=== PATIENT | female | born 1975 | race Caucasian/White ===

== ENCOUNTER 2018-06-27 04:00 | Inpatient (IN) ==
[2018-06-27] MEDS ORDERED: Famotidine 20 MG/2 ML VIAL IVP PRN (05:31)
[2018-06-27] MEDS ORDERED: *HR* Nalbuphine 10 MG/ML AMPUL IVP PRN (05:31)
[2018-06-27] MEDS ORDERED: Naloxone 0.4 MG/ML INJ IVP PRN (05:31)
[2018-06-27] MEDS ORDERED: Penicillin G Potassium 5,000,000 UNIT in 0.9 % Sodium Chloride Mini Bag 100 ML IVPB ONE (05:43)
[2018-06-27] MEDS ORDERED: Ringers Solution, Lactated 1,000 ML IVC SCH (05:45)
[2018-06-27 06:13] LABS: Basophils % 0.2 %; Eosinophils # 0.1 K/mcL (0.0-0.6); Eosinophils % 1.4 %; Hematocrit 27.5 % (35.3-44.9); Hemoglobin 9.5 g/dL (11.5-15.4); Immature Granulocytes % 1.6 % (0-4); Lymphocytes # 2.1 K/mcL (0.6-4.6); Lymphocytes % 21.3 %; Mean Corpuscular HGB Conc 34.5 g/dL (31.6-35.5); Mean Corpuscular Hemoglobin 32.2 pg (28.0-33.3); Mean Corpuscular Volume 93.2 fL (83.0-100.0); Mean Platelet Volume 10.7 fL (9.4-12.4); Monocytes # 0.5 K/mcL (0.0-1.3); Platelet Count 220 K/mcL (140-400); Red Blood Count 2.95 M/mcL (3.82-4.97); Red Cell Distribution Width 14.1 % (11.5-14.5); Segmented Neutrophils % 70.5 %
[2018-06-27 06:32] LABS: Alanine Aminotransferase 8 Units/L (7-52); Aspartate Amino Transferase 18 Units/L (13-39); BUN/Creatinine Ratio 14 (6-26); Blood Urea Nitrogen 9 mg/dL (6-20); Lactate Dehydrogenase 189 Units/L (140-271); Uric Acid 7.3 mg/dL (2.3-7.6); eGFR For Non-African Americans > 60 (> 60)
[2018-06-27 06:42] LABS: Amphetamine Screen,Urine Negative ng/mL (Cutoff=1000); Barbiturate Screen,Urine Negative ng/mL (Cutoff=200)
[2018-06-27 06:43] LABS: Benzodiazepines Screen,Urine Negative ng/mL (Cutoff=300); Cannabinoid Screen,Urine Negative ng/mL (Cutoff = 50); Cocaine Screen,Urine Negative ng/mL (Cutoff= 300); Opiate Screen,Urine Negative ng/mL (Cutoff=300); Phencyclidine Screen,Urine Negative ng/mL (Cutoff=25)
[2018-06-27] MEDS ORDERED: miSOPROStol 25 MCG TABLET VG SCH (08:00)
[2018-06-27] MEDS ORDERED: Ringers Solution, Lactated 500 ML IVC ONE (08:26)
[2018-06-27] MEDS ORDERED: EPHEDrine 50 MG/ML VIAL IVP PRN (08:26)
--- NOTE | 2018-06-27 08:27 | OB/GYN History & Physical ---
Date of Encounter: 06/28/18 Time of Encounter: 08:27 Assessment and Plan (1) 38 weeks gestation of Current visit: No Status: Acute 42 y/o @ 38+ 3 weeks, CHTN vs CHTN with superimposed preeclampsia Obesity, Multigravida, Migraines Plan: she received cytotec 25mcg @ 6:30AM and PCN for GBS ppx @ 0616, she has received 200mg of PO Labetalol because she did not take her AM dose, I don't think she has superimposed pre-eclampsia at this time but if I have to keep giving anti hypertensives and her pressures are difficult to control, then we have to assume CHTN with superimposed pre-eclampsia (I just gave 20mg of IV labetalol x 1 so far, aside from anemia, her labs are normal, she has had occasional spontaneous decels so we are carefully monitoring her strip, anticipate History of Present Illness HPI: Ms. Foreman is a 42 year old female @ 38+3 weeks who presents to L&D for IOL for CHTN controlled with meds. She does not report LOF, VB or ctxs. She presents to L&D with severe range pressures and reports that she did not take her meds. She is GBS + and was late to care. She has a history of migraines, but does not report other symptoms of toxemia. Past Med Surg Social Fam HX - Past Medical History Medical history: hypertension, migraine Psychiatric history: no psych history - Past Surgical History Additional surgical history: OVARIAN CYST REMOVED 1994. vaginal delivery 95 , 03, 05 , 12 - Social History Smoking Status: Never smoker Smokeless Tobacco Status: No Alcohol use: none Drug use: none - Family History Mother Living Status: Still Living Hx Family Cardiac Disorders: Yes (HTN) Hx Family Respiratory Disorders: No Hx Family Cancer: No Hx Family GI Disorders: No Hx Family Genitourinary Disorders: No Hx Family Endocrine Disorder: Yes (DM) Hx Family Musculoskeletal Disorders: No Hx Family Neuromuscular Disorders: No Hx Family Neurologic Disorders: No Hx Family HEENT Disorders: No Hx Family Autoimmune Disorders: No Hx Family Reproductive Disorders: No Hx Family Psychosocial Disorders: No Hx Family Medical Disorders: No Obstetrical History - Pregnancies : 6 Medications and Allergies Formula 1 tab PO DAILY 10/02/15 [History] Labetalol [Trandate] 100 mg PO BID 06/27/18 [History] 3 Allergy/AdvReac Type Severity Reaction Status Date / Time No Known Allergies Allergy Verified 10/01/15 21:42 Results Result Diagrams: 06/28/18 05:44 06/27/18 05:40 Abnormal lab results RBC 2.95 M/mcL (3.82-4.97) L 06/27/18 05:40 Hgb 9.5 g/dL (11.5-15.4) L 06/27/18 05:40 Hct 27.5 % (35.3-44.9) L 06/27/18 05:40 All other labs normal. - VTE Reasons for not Prescribing Prophylaxis: Treatment not Indicated - Low risk for VTE
--- NOTE | 2018-06-27 08:28 | Anesthesia Evaluation PreOp ---
Date of Encounter: 06/27/18 Time of Encounter: 08:26 - Past History Planned Operation: GUILHERME/General for CS/Spinal for CS Cardiac History: HTN (Chronic HTN with ) Pulmonary History: Denies Any Significant HX ONLINE SERVICES MANAGER History: Denies Any Significant HX Other Medical History: Denies Any Significant HX Anesthesia History: No Prior Anesthetic Complications, Past Anesthesia : Yes Alcohol Use: none Drug use: none Medications and Allergies Formula 1 tab PO DAILY 10/02/15 [History] Labetalol [Trandate] 100 mg PO BID 06/27/18 [History] 3 Allergy/AdvReac Type Severity Reaction Status Date / Time No Known Allergies Allergy Verified 10/01/15 21:42 - Meds/Allergy Pre-op Review Medications Reviewed: Yes Allergies Reviewed: Yes Beta Blockers on Current Med List: Yes (today at 820) Anesthesia Results - Labs 06/27/18 05:40 06/27/18 05:40 Anesthesia Exam O2 Sat Height 1.6 m Height 1.6 m Weight 104.508 kg Weight 104.326 kg O2 Sat Height 1.6 m Height 1.6 m Weight 104.508 kg Weight 104.326 kg NPO (# of Hours): 4 Pain Scale: 3 Pain Scale Used: Numeric (1 - 10) - HEENT Pupil (Motor): Pupils equal Mallampati: II Teeth: Normal Oral Opening: Greater than 3 - ONLINE SERVICES MANAGER LOC: Oriented ONLINE SERVICES MANAGER Motor: Normal RUE, Normal LUE, Normal RLE, Normal LLE, Normal Face ONLINE SERVICES MANAGER Sensory: Normal: RUE, LUE, RLE, LLE, Face - Cardiac Rhythm: Regular Murmur: None JVD: No Carotid Bruit: No - Pulmonary Breath Sounds: bilateral Clear Respiratory Effort: Symmetrical Anesthesia Assess/Plan ASA Score: 3 (BMI 40, HTN) Modified [place] Scale for Level of Consciousness: Cooperative, oriented, and tranquil Anesthetic Plan: General (plan b), Regional (plan a) Autologous Blood: Yes Monitoring Plan: Standard Monitors Recovery Plan: PACU
[2018-06-27] MEDS ORDERED: Epidural Premix (fent/bupiv) 110 ML EP SCH (08:30)
[2018-06-27] MEDS ORDERED: *HR* Labetalol 20 MG/4 ML SYRINGE IVP ONE ×5 (08:31→13:08)
[2018-06-27] MEDS: Penicillin G Potassium 2,500,000 UNIT in 0.9 % Sodium Chloride 100 ML IVPB SCH ×2 (10:22→15:36)
[2018-06-27] MEDS ORDERED: Magnesium Sulfate 6 GM in 0.9 % Sodium Chloride 100 ML IVPB ONE (10:47)
[2018-06-27] MEDS: Magnesium Sulfate 20 gm/500mL 20 GM/500 ML IV.SOLN IVC SCH ×2 (11:38→22:43)
--- NOTE | 2018-06-27 12:24 | OB Labor Progress Note ---
Date of Encounter: 06/28/18 Time of Encounter: 12:19 Labor Progress Note - Subjective Subjective: her pressures are in the 160's systolic, does not report blurry vision, KIRKLAND, RUQ pain or other symptoms of superimposed preeclampsia - Vital Signs Vital Signs: mild to severe range pressures - Cervix Cervix: 3cm - Heart Tones Heart Tones: CAT 1 - Plan Plan: IV labetalol 40mg given will start her on Mg for seizure ppx, start pitcoin s/p 4hr of GBS ppx
[2018-06-27] MEDS ORDERED: Lidocaine -MPF 1% 5 ML AMPUL ONE (12:34)
--- NOTE | 2018-06-27 13:09 | Anesthesia Procedures ---
Date of Encounter: 06/27/18 Time of Encounter: 13:07 Procedures: Anesthesia - Epidural/Spinal Patient ID/Chart reviewed: Yes Patient examined: Yes OB Eval: Gestational age: 38.3 OB Eval: : 6 OB Eval: Hx Para: 5 OB Eval: Dilated at (cm): 3 OB Eval: Contractions: Non-stressed pattern Consent Obtained: Yes Supplemental Oxygen: None/Room Air Site Prep: Aseptic Technique, Sterile prep and drape, Povidone-Iodine 1% Patient position: upright Local Anesthetic: Lidocaine 1% Amount of Local Anesthetic used: 3 Touhy Needle Gauge: 18 Touhy Needle Depth (cm): 7 Catheter Depth at Skin (cm): 20 Test Dose (1.5% Lido + Epi): Volume given (mls): 5 Test Dose Result: Negative Loading Dose: Other: 10mls of epidural pharm bag premix Loading Dose Administered: Thru Catheter Infusion Med: 0.125% Bupivacaine w/ 2 mcg/ml Fentanyl Infusion Rate (mls/hr): 14 ([id number]) Catheter Secured in Place: Tegaderm, Tape Interspace Used: L3-L4 Loss of Resistance (RUPA): Yes Blood: No CSF: No Paresthesia: No Procedure: pt tolerated procedure well. no complications. vss. fhr stable.
[2018-06-27] MEDS ORDERED: Oxytocin 20 units/ LR 1000 mL 20 UNIT/1,000 ML BAG IVC SCH ×2 (13:30→19:00)
--- NOTE | 2018-06-27 16:05 | OB Labor Progress Note ---
Date of Encounter: 06/28/18 Time of Encounter: 16:00 Labor Progress Note - Subjective Subjective: patient comfortable s/p epidural, on Mg for for seizures ppx, has a mild KIRKLAND but denies other symptoms of toxemia - Vital Signs Vital Signs: mild to normal range pressures - Cervix Cervix: 5-6cm - Heart Tones Heart Tones: CAT 1 - Plan Plan: patient AROM'ed cont monitoring BP, cont monitoring strip anticipate
[2018-06-27] MEDS ORDERED: Ondansetron 4 MG/2 ML VIAL IVP PRN (17:25)
[2018-06-27] MEDS ORDERED: Ondansetron 4 MG/2 ML VIAL ONE (17:28)
--- NOTE | 2018-06-27 18:50 | OB/GYN Procedure Note ---
Delivery - Delivery Date: 06/27/18 Provider: Jos Garcia Intrapartum events: none Delivery induction: oxytocin, misoprostol Delivery augmentation: rupture of membranes Delivery monitor: external FHT Anesthesia: epidural Quantitated Blood Loss: 100 - Repair Episiotomy: none Laceration Description: Periurethral - Complications Delivery complications: none - Disposition Mom disposition: stable in LDR [place] disposition: stable in LDR - Comments Comments: Deepa is a 42 y/o now who delivered a viable male infant @ 1814hrs, was delivered CRISTY, weight 2820g (6lbs 13oz), APGARs 8/9, placenta delivered @ 1817, right hemostatic periurethral laceration, EBL 100cc. Mother and infant stable.
[2018-06-27] MEDS ORDERED: Ibuprofen 600 MG TABLET PO PRN (18:53)
[2018-06-27] MEDS ORDERED: Measles/Mumps/Rubella Vacc 0.5 ML VIAL SQ PRN (18:53)
[2018-06-27] MEDS: Acetaminophen/Butalbital/CaffeineTABLET PO PRN (19:09)
[2018-06-27] MEDS ORDERED: Calcium Gluconate 1,000 MG/10 ML VIAL IVPB ONE (21:29)
[2018-06-28] MEDS: Acetaminophen/Butalbital/CaffeineTABLET PO PRN ×2 (01:30→08:53)
[2018-06-28 05:57] LABS: Basophils % 0.3 %; Eosinophils # 0.1 K/mcL (0.0-0.6); Eosinophils % 0.9 %; Hematocrit 32.2 % (35.3-44.9); Immature Granulocytes % 1.2 % (0-4); Lymphocytes # 1.6 K/mcL (0.6-4.6); Lymphocytes % 13.3 %; Mean Corpuscular HGB Conc 34.5 g/dL (31.6-35.5); Mean Corpuscular Hemoglobin 31.8 pg (28.0-33.3); Mean Corpuscular Volume 92.3 fL (83.0-100.0); Mean Platelet Volume 10.5 fL (9.4-12.4); Monocytes # 0.6 K/mcL (0.0-1.3); Monocytes % 4.5 %; Neutrophils # 9.7 K/mcL (1.6-8.9); Platelet Count 237 K/mcL (140-400); Red Blood Count 3.49 M/mcL (3.82-4.97); Red Cell Distribution Width 14.1 % (11.5-14.5); Segmented Neutrophils % 79.8 %
[2018-06-28 05:59] LABS: Hemoglobin 11.1 g/dL (11.5-15.4)
[2018-06-28] MEDS: Magnesium Sulfate 20 gm/500mL 20 GM/500 ML IV.SOLN IVC SCH (08:06)
[2018-06-28] MEDS: Prenatal Vit/FA 1 EACH TABLET PO SCH (08:08)
[2018-06-28 09:16] LABS: Alanine Aminotransferase 7 Units/L (7-52); Albumin 2.8 g/dL (3.5-5.7); Alkaline Phosphatase 70 Units/L (34-104); Aspartate Amino Transferase 15 Units/L (13-39); Aspartate Amino Transferase 16 Units/L (13-39); BUN/Creatinine Ratio 9 (6-26); Bilirubin,Total 0.4 mg/dL (0.3-1.0); Blood Urea Nitrogen 6 mg/dL (6-20); Carbon Dioxide 21 mEq/L (23-29); Chloride 101 mEq/L (98-107); Globulin 2.9 g/dL (2.4-3.5); Glucose 102 mg/dL (70-105); Lactate Dehydrogenase 199 Units/L (140-271); Osmolality,Calculated 268 (280-300); Potassium 3.8 mEq/L (3.5-5.1); Sodium 130 mEq/L (136-145); Total Protein 5.7 g/dL (6.4-8.9); Uric Acid 6.7 mg/dL (2.3-7.6); eGFR For Non-African Americans > 60 (> 60)
[2018-06-28 09:51] LABS: Magnesium 5.9 mg/dL (1.6-2.6)
--- NOTE | 2018-06-28 09:54 | OB/GYN Progress Note ---
Date of Encounter: 06/28/18 Time of Encounter: 09:48 - Assessment and Plan (1) Pre-eclampsia superimposed on chronic hypertension, delivered Current Visit: Yes Status: Acute Continue magnesium for 24 hours . (2) Hypotensive episode Current Visit: Yes Status: Acute BP 74/52 following administration of 200mg labetalol. Improved to 104/70 with supine positioning. 500ml bolus LR now. Pt to be out of bed only once feeling better and with RN assist. Will get orthostatic BP's prior to ambulation also. Plan to decrease labetalol to 100mg BID. Dr. Camacho aware (3) Status post vaginal delivery Current Visit: No Status: Acute Pt meeting milestones. Plan for d/c pang once pt is stable to ambulate. Anticipate discharge home PPD2 depending on BP control. Subjective - Subjective Interval history: CNM called to bedside per RN. Pt reporting numbness of her tongue and lips. She states that she felt like this when she took 200mg labetalol at home so she was only taking 100mg. Per RN she initially reported arm numbness and chest heaviness but these have improved with supine positioning prior to my arrival. She reports light lochia. Patient reports: appetite normal, voiding normally (via catheter, great output) , pain well controlled (pt reports KIRKLAND but recently took fioricet ), no ambulating normally (was dizzy last evening and has not been OOB this am) Peever: doing well Objective - Latest Vital Signs Latest vital signs: Vital Signs Temp Pulse Pulse Resp BP Pulse Ox 06/28/18 08:45 76 14 120/80 06/28/18 07:45 97.9 F 74 14 127/84 06/28/18 06:50 68 16 135/88 06/28/18 05:45 70 20 119/77 06/28/18 04:45 70 20 128/79 06/28/18 03:40 76 76 16 118/78 06/28/18 02:40 79 16 144/81 06/28/18 01:40 76 16 120/78 06/28/18 00:45 82 12 130/81 06/27/18 23:45 74 20 150/89 06/27/18 22:45 98.0 F 79 79 14 148/87 98 06/27/18 21:45 98.4 F 72 72 22 152/95 97 06/27/18 20:55 62 16 136/90 Intake and Output 06/27/18 06/28/18 06/28/18 23:59 07:59 15:59 Intake Total 500 / 500 500 / 500 Output Total 3290 / 3290 1340 / 1340 118 / 118 Balance -2790 / -2790 -1340 / -1340 382 / 382 Intake: IV Fluids 500 / 500 500 / 500 Magnesium Sulfate Premix 20 gm/ 500 / 500 500 / 500 500mL 20 gm In 500 ml @ 2 GM/HR 50 mls/hr IVC .Q10H MISSAEL Rx#: [id number] Output: Urine 2150 / 2150 1340 / 1340 118 / 118 Emesis 200 / 200 Catheter 940 / 940 Other: Weight 101.6 kg Patient Weight 06/28/18 23:59 Weight 101.6 kg - Exam Lungs: bilateral: normal Chest: Normal S1, Normal S2 Extremities: Present: normal (2+ reflexes bilaterally) Abdomen: Present: soft Uterus: Present: firm Uterus Position: 1 Finger Below Umbilicus Comments: lochia light - Labs Labs: Laboratory Results - last 24 hr 06/28/18 06/28/18 06/28/18 05:44 08:23 08:23 WBC 12.1 H RBC 3.49 L Hgb 11.1 L D Hct 32.2 L MCV 92.3 MCH 31.8 MCHC 34.5 RDW 14.1 Plt Count 237 MPV 10.5 Immature Gran % 1.2 Seg Neutrophils % 79.8 Lymphocytes % 13.3 Monocytes % 4.5 Eosinophils % 0.9 Basophils % 0.3 Neutrophils # 9.7 H Lymphocytes # 1.6 Monocytes # 0.6 Eosinophils # 0.1 Basophils # 0.0 Sodium 130 L Potassium 3.8 Chloride 101 Carbon Dioxide 21 L BUN 6 6 Creatinine 0.67 0.69 Est GFR ( Amer) > 60 > 60 Est GFR (Non-Af Amer) > 60 > 60 BUN/Creatinine Ratio 9 9 Glucose 102 Calculated Osmolality 268 L Uric Acid 6.7 Calcium 7.0 L Total Bilirubin 0.4 AST 16 15 ALT 7 7 Alkaline Phosphatase 70 Lactate Dehydrogenase 199 Serum Total Protein 5.7 L Albumin 2.8 L Globulin 2.9 Albumin/Globulin Ratio 1.0 L
[2018-06-29] MEDS: Prenatal Vit/FA 1 EACH TABLET PO SCH (08:18)
[2018-06-29 09:03] VITALS: BP 137/89
--- NOTE | 2018-06-29 10:13 | Discharge Summary ---
Date of Encounter: 06/29/18 Time of Encounter: 10:11 - Discharge Diagnosis (1) Status post vaginal delivery Priority: Primary Status: Acute Comments: Pain well controlled with by mouth pain meds Tolerating regular diet Voiding independently Lochia light Passing flatus, no BM yet Ambulating independently Vital signs stable and blood pressure controlled on 100 mg of labetalol twice a day Discharge home today (2) Breast feeding status of mother Priority: Secondary Status: Acute Comments: Community resources provided (3) hypertension Priority: Secondary Status: Acute Comments: Continue labetalol 100 mg twice a day through visit - Discharge Medications Prescriptions: Ibuprofen [Motrin] 600 mg PO Q6HR PRN #30 tablet PRN Reason: Cramping Docusate [Colace] 100 mg PO BID #30 capsule Home Medications: Formula 1 tab PO DAILY 10/02/15 [History] Labetalol [Trandate] 100 mg PO BID 06/27/18 [History] Docusate [Colace] 100 mg PO BID #30 capsule 06/29/18 [Rx] Ibuprofen [Motrin] 600 mg PO Q6HR PRN #30 tablet 06/29/18 [Rx] Allergies/Adverse Reactions: 3 Allergy/AdvReac Type Severity Reaction Status Date / Time No Known Allergies Allergy Verified 10/01/15 21:42 Data Procedures and tests throughout hospitalization: Laboratory Tests 06/27/18 06/27/18 06/27/18 05:40 05:40 05:40 WBC 10.0 RBC 2.95 L Hgb 9.5 L Hct 27.5 L MCV 93.2 MCH 32.2 MCHC 34.5 RDW 14.1 Plt Count 220 MPV 10.7 Immature Gran % 1.6 Seg Neutrophils % 70.5 Lymphocytes % 21.3 Monocytes % 5.0 Eosinophils % 1.4 Basophils % 0.2 Neutrophils # 7.0 Lymphocytes # 2.1 Monocytes # 0.5 Eosinophils # 0.1 Basophils # 0.0 Sodium Potassium Chloride Carbon Dioxide BUN Creatinine Est GFR ( Amer) Est GFR (Non-Af Amer) BUN/Creatinine Ratio Glucose Calculated Osmolality Uric Acid Calcium Magnesium Total Bilirubin AST ALT Alkaline Phosphatase Lactate Dehydrogenase Serum Total Protein Albumin Globulin Albumin/Globulin Ratio Urine Opiates Screen Negative Ur Barbiturates Screen Negative Ur Phencyclidine Scrn Negative Ur Amphetamines Screen Negative U Benzodiazepines Scrn Negative Urine Cocaine Screen Negative U Marijuana (THC) Screen Negative Ur Drug Screen Interp See Below Hep Bs Antigen Nonreactive 06/27/18 06/28/18 06/28/18 05:40 05:44 08:23 WBC 12.1 H RBC 3.49 L Hgb 11.1 L D Hct 32.2 L MCV 92.3 MCH 31.8 MCHC 34.5 RDW 14.1 Plt Count 237 MPV 10.5 Immature Gran % 1.2 Seg Neutrophils % 79.8 Lymphocytes % 13.3 Monocytes % 4.5 Eosinophils % 0.9 Basophils % 0.3 Neutrophils # 9.7 H Lymphocytes # 1.6 Monocytes # 0.6 Eosinophils # 0.1 Basophils # 0.0 Sodium 130 L Potassium 3.8 Chloride 101 Carbon Dioxide 21 L BUN 9 6 Creatinine 0.63 0.67 Est GFR ( Amer) > 60 > 60 Est GFR (Non-Af Amer) > 60 > 60 BUN/Creatinine Ratio 14 9 Glucose 102 Calculated Osmolality 268 L Uric Acid 7.3 Calcium 7.0 L Magnesium Total Bilirubin 0.4 AST 18 16 ALT 8 7 Alkaline Phosphatase 70 Lactate Dehydrogenase 189 Serum Total Protein 5.7 L Albumin 2.8 L Globulin 2.9 Albumin/Globulin Ratio 1.0 L Urine Opiates Screen Ur Barbiturates Screen Ur Phencyclidine Scrn Ur Amphetamines Screen U Benzodiazepines Scrn Urine Cocaine Screen U Marijuana (THC) Screen Ur Drug Screen Interp Hep Bs Antigen 06/28/18 08:23 WBC RBC Hgb Hct MCV MCH MCHC RDW Plt Count MPV Immature Gran % Seg Neutrophils % Lymphocytes % Monocytes % Eosinophils % Basophils % Neutrophils # Lymphocytes # Monocytes # Eosinophils # Basophils # Sodium Potassium Chloride Carbon Dioxide BUN 6 Creatinine 0.69 Est GFR ( Amer) > 60 Est GFR (Non-Af Amer) > 60 BUN/Creatinine Ratio 9 Glucose Calculated Osmolality Uric Acid 6.7 Calcium Magnesium 5.9 H Total Bilirubin AST 15 ALT 7 Alkaline Phosphatase Lactate Dehydrogenase 199 Serum Total Protein Albumin Globulin Albumin/Globulin Ratio Urine Opiates Screen Ur Barbiturates Screen Ur Phencyclidine Scrn Ur Amphetamines Screen U Benzodiazepines Scrn Urine Cocaine Screen U Marijuana (THC) Screen Ur Drug Screen Interp Hep Bs Antigen Date of admission: 06/27/18 04:28 Primary care physician: Adelia Barajas MD Consults: 06/27/18 18:53 Consult to Civil Engineer'S Aide [CONS] Routine Comment: Vaginal delivery, consult needed Discharging clinician: Yris Yeboah Anticipated date of discharge: 06/29/18 - Patient Status Disposition: Home, Self-Care Condition: Good Functional capacity at discharge: independent ambulation Overall status at discharge: patient is progressing back to baseline - Discharge Instructions Follow Up With: Adelia Barajas MD [Primary Care Provider] - Jos Garcia MD [Partnered Physician] - - Diet and Activity Activity: increase activity as tolerated Diet: regular diet Hospital Course Reason for admission: induction of labor, IUP at term, pre-eclampsia Delivery: Episiotomy: none Laceration: other (right periurethral) Other procedures: none complications: none Discharge diagnosis: IUP at term delivered baby: male Hospital course: Patient was admitted to labor and delivery for induction of labor secondary to severe preeclampsia. She progressed to the second stage of labor and delivered a viable male . Her course was uncomplicated. Patient is agreeable to go home today. She will continue 100 mg of labetalol twice a day through her visit. Time Attestation: Total time spent providing and/or coordinating discharge services: Time Spent: Less than 30 minutes Exam - Constitutional Vitals: Temp Pulse Resp BP Pulse Ox 99.4 F 76 16 137/89 96 06/29/18 09:01 06/29/18 09:01 06/29/18 09:01 06/29/18 09:01 06/29/18 09:01 General appearance IM: A&O X 3 - Respiratory Respiratory exam: Present: CTAB - Cardiovascular Cardiovascular exam IM: Present: RRR, +S1, +S2 - GI/Abdominal GI/Abdominal exam IM: normal bowel sounds, no peritoneal signs - Rectal Rectal exam: deferred - Uterine Tone: Firm Uterus Position: 1 Finger Below Umbilicus, Midline - Extremities Exam Extremities exam IM: Present: normal capillary refill, normal inspection, radial pulses palpable and symmetrical - Neurological Exam Neurological exam: alert, CN II-XII intact, normal gait, oriented X3, reflexes normal, no focal deficits, strengths equal and symetr throughout - Psychiatric Additional comments: Signs and symptoms of depression discussed with patient and family and both verbalize understanding of when to seek help.
== END 2018-06-29 13:56 | disposition home or self-care (01) | DRG 560 ==
LOC: 1NENULAB 04:28 → 1NENUOBS 21:18
PROVIDERS: ADMIT Student in an Organized Health Care Education/Training Program; ATTEND Student in an Organized Health Care Education/Training Program